=== PATIENT | female | born 1975 | race American Indian/Alaskan Native ===

== ENCOUNTER 2019-01-16 19:12 | Emergency (ER) | payer BC ==
--- NOTE | 2019-01-16 20:07 | Emergency Department Report ---
Chief Complaint: Extremity Injury, Upper Stated Complaint: LEFT HAND INJURY/FALL Time Seen by Provider: 01/16/19 20:05 - HPI History of Present Illness: This is a 43 y.o. female that presents with pain and swelling to left lateral hand s/p fall. - ROS Review of Systems: pain and swelling to left hand - Exam Vital Signs: Vital Signs 01/16/19 19:57 Temperature 98.1 F Pulse Rate 94 H Respiratory 16 Rate Blood Pressure 144/102 O2 Sat by Pulse 97 Oximetry MSE screening note: Focused history and physical exam performed. Due to findings the following was ordered: x-ray of left hand. Fast track for further evaluation. ED Disposition for MSE Condition: Stable Referrals: [facility] [Other] - 3-5 Days
--- NOTE | 2019-01-16 21:04 | XRay Report ---
PROCEDURE: XR HAND 3+V LT TECHNIQUE: 3 views of the left hand HISTORY: pain and swelling to lateral side COMPARISONS: No priors FINDINGS: No evidence of acute fracture or dislocation. Deformity of the fifth metacarpal distally, which may reflect sequela from prior healed fracture. Alignment is anatomic. No radiopaque foreign bodies. IMPRESSION: No acute fracture or dislocation. Deformity of the fifth metacarpal distally which may reflect sequela from prior healed fracture.. This document is electronically signed by John Escobar MD., January 16 2019 09:02:40 PM ET
[2019-01-16] MEDS ORDERED: IBUPROFEN PO ONE (22:10)
[2019-01-16] MEDS ORDERED: NORVASC PO ONE (22:11)
--- NOTE | 2019-01-16 22:12 | Emergency Department Report ---
Upper Extremity - HPI Chief Complaint: Extremity Injury, Upper Stated Complaint: LEFT HAND INJURY/FALL Time Seen by Provider: 01/16/19 20:05 Upper Extremity: Left Hand Occurred When: 1 Day Mechanism: Fall Severity: moderate Symptoms: Yes Pain with Movement, Yes Limited Range of Movement, Yes Weakness, Yes Swelling, No Deformity, No Numbness, No Bruising/Ecchymosis, No Laceration or Abrasion Other History: 43-year-old -Citizen Of [place] female presents to the emergency room for left hand swelling and pain. Patient reports that she had a fall yesterday and braced herself with her left hand. Patient reports no past medical history of any similar issues. ED Review of Systems ROS: Stated complaint: LEFT HAND INJURY/FALL Other details as noted in HPI Comment: All other systems reviewed and negative Musculoskeletal: joint swelling (fifth metacarpal), arthralgia (left hand pain fifth metacarpal) ED Past Medical Hx - Past Medical History Hx Hypertension: Yes (only when shes ) - Surgical History Additional Surgical History: CS - Social History Smoking Status: Never Smoker Substance Use Type: None - Medications Home Medications: Home Medications Medication Instructions Recorded Confirmed Last Taken Type Ibuprofen [Motrin] 600 mg PO Q8H PRN #90 tablet 07/12/15 Unknown Rx Sulfamethoxazole/Trimethoprim 1 each PO BID #10 tablet 07/12/15 Unknown Rx [Bactrim DS TAB] amLODIPine [Norvasc] 5 mg PO DAILY #45 tablet 01/16/19 Unknown Rx traMADol [Ultram 50 MG tab] 50 mg PO Q6HR PRN #12 tablet 01/16/19 Unknown Rx Upper Extremity Exam - Exam General: Vital signs noted. No distress. Alert and acting appropriately. Shoulder Exam: Yes Normal Range of Motion in Shoulder, No Shoulder Tenderness, No Clavicle Tenderness, No Shoulder Deformity, No AC Joint Tenderness Arm Exam: No Arm/Humerus Tenderness, No Arm Deformity Elbow: No Elbow Tenderness, No Normal Range of Motion in Elbow, No Elbow Deformity Forearm: No Forearm Tenderness, No Forearm Deformity, No Pain with Pronation, No Pain with Supination Hand: Yes Hand Tenderness (left lateral), Yes Normal ROM in Digit(s), No Hand Deformity, No Digit Tenderness, No Digit(s) Deformity, No Tendon Dysfunction CMS Exam: Yes Normal Distal Pulses, Yes Normal Capillary Refill, Yes Normal Distal Sensation, No Broken Skin ED Course Vital Signs 01/16/19 19:57 Temperature 98.1 F Pulse Rate 94 H Respiratory 16 Rate Blood Pressure 144/102 O2 Sat by Pulse 97 Oximetry ED Medical Decision Making - Radiology Data Radiology results: report reviewed Review of x-ray the left hand. Impression: No acute fracture or dislocation. Deformity of the fifth metacarpal distally which may reflect sequela from prior healed fracture. - Medical Decision Making Patient given ibuprofen for pain management on her ER visit. X-ray of left hand was performed with no acute fractures or dislocation Patient be placed in a wrist splint and prescription for tramadol. Patient also requests a refill on her Norvasc since she has been out of it for a few weeks. Patient reports she currently takes Norvasc 5 mg daily. Critical care attestation.: If time is entered above; I have spent that time in minutes in the direct care of this critically ill patient, excluding procedure time. ED Disposition Clinical Impression: Hand pain, left Injury of left hand Qualifiers: Encounter type: initial encounter Qualified Code(s): S69.92XA - Unspecified injury of left wrist, hand and finger(s), initial encounter HTN (hypertension) Qualifiers: Hypertension type: essential hypertension Qualified Code(s): I10 - Essential (primary) hypertension Disposition: DC-01 TO HOME OR SELFCARE Is pt being admited?: No Does the pt Need Aspirin: No Condition: Stable Instructions: Hypertension (ED) Additional Instructions: Please take pain medication as needed. Do not operate heavy machinery while taking pain medication. Please take amlodipine as prescribed for your blood pressure. Please follow up with the primary care provider for blood pressure management. Prescriptions: amLODIPine [Norvasc] 5 mg PO DAILY #45 tablet traMADol [Ultram 50 MG tab] 50 mg PO Q6HR PRN #12 tablet PRN Reason: Pain Referrals: [facility] [Other] - 3-5 Days
[2019-01-16 22:53] VITALS: BP 144/94
== END 2019-01-16 22:53 | disposition home or self-care (01) ==
LOC: ED 19:12
DX: S69.92XA Unspecified injury of left wrist, hand and finger(s), initial encounter (principal); I10 Essential (primary) hypertension; Z88.6 Allergy status to analgesic agent; Z79.899 Other long term (current) drug therapy; W19.XXXA Unspecified fall, initial encounter; Y93.89 Activity, other specified; Y92.89 Other specified places as the place of occurrence of the external cause; Y99.8 Other external cause status

== ENCOUNTER 2020-03-06 07:16 | Emergency (ER) | payer SELFPAY ==
--- NOTE | 2020-03-06 08:00 | Emergency Department Report ---
ED General Adult HPI - General Chief complaint: Upper Respiratory Infection Stated complaint: WEAKNESS,BODY ACHE/ CAMERON/ LOSS OF APPETITE PUI?: Yes Time Seen by Provider: 03/06/20 07:36 Source: patient, RN notes reviewed Mode of arrival: Ambulatory Limitations: No Limitations - History of Present Illness Initial comments: The patient is a 45-year-old female. I have not medically evaluated her in the past. She does not have a local primary care doctor. She reports that she is not . Please note that for the entire history and physical examination, I had on complete personal protective equipment. 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 The patient presents to the ER on day 8 of cough, body aches, malaise, fatigue, lack of energy. She denies physical pain. She does endorse a decrease in taste and smell. There is no complaint of headache, neck pain, chest pain, abdominal pain, she has positive shortness of breath, there were no urinary symptoms, positive body aches, no focal extremity weakness and or numbness, and no cutaneous lesions. Does not have confirmed coronavirus exposure that she is aware of. Symptoms constant, getting worse, worsened with physical exertion and decreased with rest She was recently referred to a local primary care doctor, but as of now, has not followed up. -: Gradual, days(s) Severity scale (0 -10): 10 Consistency: other Improves with: other Worsens with: other Associated Symptoms: other - Related Data Previous Rx's Medication Instructions Recorded Last Taken Type Ibuprofen [Motrin] 600 mg PO Q8H PRN #90 tablet 07/12/15 Unknown Rx amLODIPine 5 mg PO DAILY #45 tablet 01/16/19 Unknown Rx Acetaminophen [Non-Aspirin Extra 500 mg PO Q6HR PRN #30 tablet 03/06/20 Unknown Rx Strength] Albuterol Sulfate [Proair 90 mcg IH Q4HR PRN #2 aer.pow.[email or web address] 03/06/20 Unknown Rx Respiclick] Amoxicillin [Trimox CAP] 1,000 mg PO Q8H #28 capsule 03/06/20 Unknown Rx Azithromycin [Zithromax TAB] 250 mg PO QDAY #4 tablet 03/06/20 Unknown Rx Ibuprofen [Motrin] 600 mg PO Q8H PRN #30 tablet 03/06/20 Unknown Rx Allergies Allergy/AdvReac Type Severity Reaction Status Date / Time acetaminophen [From Percocet] Allergy Itching Verified 07/12/15 03:01 oxycodone HCl [From Percocet] Allergy Itching Verified 07/12/15 03:01 ED Review of Systems ROS: Stated complaint: WEAKNESS,BODY ACHE/ CAMERON/ LOSS OF APPETITE Other details as noted in HPI Constitutional: fever, malaise, weakness Eyes: denies: eye discharge ENT: congestion Respiratory: cough, wheezing Cardiovascular: denies: chest pain Gastrointestinal: denies: abdominal pain Genitourinary: denies: dysuria Musculoskeletal: arthralgia, myalgia Skin: denies: lesions Neurological: weakness Psychiatric: as per HPI Hematological/Lymphatic: denies: easy bleeding ED Past Medical Hx - Past Medical History Previous Medical History?: Yes Hx Hypertension: Yes (only when shes ) - Surgical History Additional Surgical History: - Social History Smoking Status: Never Smoker Substance Use Type: None - Medications Home Medications: Home Medications Medication Instructions Recorded Confirmed Last Taken Type Ibuprofen [Motrin] 600 mg PO Q8H PRN #90 tablet 07/12/15 Unknown Rx amLODIPine 5 mg PO DAILY #45 tablet 01/16/19 Unknown Rx Acetaminophen [Non-Aspirin Extra 500 mg PO Q6HR PRN #30 tablet 03/06/20 Unknown Rx Strength] Albuterol Sulfate [Proair 90 mcg IH Q4HR PRN #2 aer.pow.ba 03/06/20 Unknown Rx Respiclick] Amoxicillin [Trimox CAP] 1,000 mg PO Q8H #28 capsule 03/06/20 Unknown Rx Azithromycin [Zithromax TAB] 250 mg PO QDAY #4 tablet 03/06/20 Unknown Rx Ibuprofen [Motrin] 600 mg PO Q8H PRN #30 tablet 03/06/20 Unknown Rx ED Physical Exam - General Limitations: No Limitations General appearance: alert, in no apparent distress - Head Head exam: Present: atraumatic, normocephalic - Eye Eye exam: Present: normal appearance, EOMI. Absent: nystagmus - ENT ENT exam: Present: normal exam, normal external ear exam - Neck Neck exam: Present: normal inspection, full ROM. Absent: tenderness, meningismus - Respiratory Respiratory exam: Present: normal lung sounds bilaterally. Absent: respiratory distress, wheezes, rales, rhonchi, stridor - Cardiovascular Cardiovascular Exam: Present: normal rhythm, tachycardia, normal heart sounds. Absent: systolic murmur, diastolic murmur, rubs, gallop - GI/Abdominal GI/Abdominal exam: Present: soft. Absent: distended, tenderness, guarding, rebound, rigid, pulsatile mass - Extremities Exam Extremities exam: Present: normal inspection, full ROM, other (2+ pulses noted in the bilateral upper and lower extremities. There is no palpable cord. negative Homans sign. Muscular compartments are soft. The pelvis is stable.). Absent: pedal edema, calf tenderness - Back Exam Back exam: Present: normal inspection, full ROM. Absent: tenderness, CVA tenderness (R), CVA tenderness (L), paraspinal tenderness, vertebral tenderness - Neurological Exam Neurological exam: Present: alert, other (No facial droop. Tongue midline. Extraocular movements intact bilaterally. Facial sensation intact to light touch in V1, V2, V3 distribution bilaterally. 5 and a 5 strength in 4 extremities. Sensation intact to light touch in 4 extremities.). Absent: motor sensory deficit - Psychiatric Psychiatric exam: Present: anxious - Skin Skin exam: Present: warm, dry, intact, normal color. 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 Suspect viral versus bacterial pneumonia. We will treat her symptoms, give fluids, obtain x-ray of the chest, check screening laboratory studies, and reassess after her initial resuscitation. Given that she is on her eighth day of symptoms, I anticipate that we should be able to correct her vital sign abnormalities, improved her symptoms, and have her discharged with oral antibiotics, and instructions to follow-up with an outpatient primary care doctor. Explained this to the patient, and she verbalized understanding, and she is amenable to this plan of care. Reevaluation #2: 03/06/20 08:41 Patient reports that she is intolerant of Percocet, but that she can tolerate Tylenol/acetaminophen. She specifically states that she is not allergic to Tylenol or acetaminophen Reevaluation #3: 03/06/20 11:10 Patient is reassessed. Tachycardia resolved. She has defervesced. Laboratory studies are reviewed and appreciated. X-ray of the chest is reviewed and appreciated. Discussed significance of findings with patient. She verbalizes understanding. Suspect viral pneumonia, but we will cover empirically with amoxicillin and azithromycin. Discussed expected natural history of both viral pneumonia, and bacterial pneumonia, patient endorses reliability to follow-up as an outpatient, and she understands return precautions. Patient has been observed in this ER for hours, she is clinically improved, and she is suitable for trial of outpatient management, self quarantine and self isolation. ED Medical Decision Making - Lab Data Result diagrams: 03/06/20 08:58 03/06/20 08:58 Vital Signs 03/06/20 07:28 Temperature 100.9 F H Pulse Rate 122 H Respiratory 20 Rate Blood Pressure 147/91 [Right] O2 Sat by Pulse 98 Oximetry - Radiology Data Radiology results: report reviewed, image reviewed Print Report Referring Physician: ISREAL BUSTAMANTE Patient Name: TAHMINA MCCLAIN Date of : 1975 Sex: Female Report Date: 2020-03-06 Report Status: Finalized Findings [facility] [address] [place] [address] XRa y Report Signed Patient: TAHMINA QUEEN MR#: [id number] : 1975 Acct:[id number] Age/Sex: 45 / F ADM Date: 03/06/20 Loc: ED Attending Dr: Ordering Physician: ISREAL BUSTAMANTE MD Date of Service: 03/06/20 Procedure(s): XR chest 1V ap Accession Number(s): [id number] cc: ISREAL BUSTAMANTE MD Fluoro Time In Minutes: CHEST 1 VIEW 03/06/2020 7:28 AM INDICATION / CLINICAL INFORMATION: Fever, cough. COVID-19 PUI. COMPARISON: None available. FINDINGS: SUPPORT DEVICES: None. HEART / MEDIASTINUM: No significant abnormality. LUNGS / PLEURA: There is focal hazy parenchymal opacity in the left lower lobe. There is no pleural effusion or pneumothorax. Right lung appears clear. ADDITIONAL FINDI NGS: No significant additional findings. IMPRESSION: 1. Hazy parenchymal opacity in the basilar left lower lung. Signer Name: Burt Hoyos MD Signed: 03/06/2020 8:31 AM Workstation Name: [id number] Transcribed By: MARIANELA Dictated By: Burt Hoyos MD Electronically Authenticated By: Burt Hoyos MD Signed Date/Time: 03/06/20830 DD/ 9 Critical Care Time: Yes Critical care time in (mins) excluding proc time.: 35 Critical care attestation.: If time is entered above; I have spent that time in minutes in the direct care of this critically ill patient, excluding procedure time. ED Disposition Clinical Impression: Suspected 2019 novel coronavirus infection Disposition: DC-01 TO HOME OR SELFCARE Is pt being admited?: No Does the pt Need Aspirin: No Condition: Stable Instructions: COVID-19, Bacterial Pneumonia (ED) Additional Instructions: Recommend that patient self isolate, self quarantine, and stay at home, and only leave 4 essential items, such as food, water, etc. history suspicious for viral pneumonia, sepsis possible coronavirus. Take the antibiotics as directed, pain medications as needed and directed, albuterol therapy as needed for assistance with breathing, and please follow-up with a physician for a repeat checkup and evaluation within the next 3 to 5 days. Patient should not return to work for at least 2 weeks, which he may return earlier if cleared to do so by her primary care physician. Please return to the emergency room right away with projectile vomiting, change in mental status, confusion, inability to tolerate liquid feeds, worsened breathing, worsening shortness of breath, or new, worsened or different symptoms not present on the initial emergency room evaluation. Patient can expect persistent weakness, muscle aches, fevers, shortness of breath, this is normal and expected. Please do not consume alcohol while taking the prescription medications. Referrals: JAKE ROBISON MD [Staff Physician] - 3-[address] [facility] [Provider Group] - 3-5 Days Forms: Work/School Release Form(ED)
--- NOTE | 2020-03-06 08:35 | XRay Report ---
CHEST 1 VIEW 03/06/2020 7:28 AM INDICATION / CLINICAL INFORMATION: Fever, cough. COVID-19 PUI. COMPARISON: None available. FINDINGS: SUPPORT DEVICES: None. HEART / MEDIASTINUM: No significant abnormality. LUNGS / PLEURA: There is focal hazy parenchymal opacity in the left lower lobe. There is no pleural e ffusion or pneumothorax. Right lung appears clear. ADDITIONAL FINDINGS: No significant additional findings. IMPRESSION: 1. Hazy parenchymal opacity in the basilar left lower lung. Signer Name: Burt Hoyos MD Signed: 03/06/2020 8:31 AM Workstation Name: [id number]
[2020-03-06] MEDS: IBUPROFEN 400 MG TAB PO ONE (09:04)
[2020-03-06] MEDS: ACETAMINOPHEN 500 MG TAB PO ONE (09:04)
[2020-03-06 09:10] LABS: Hematocrit 43.3 % (30.3-42.9); Hemoglobin 14.6 gm/dl (10.1-14.3)
[2020-03-06] MEDS: SODIUM CHLORIDE 0.9% 1000 ML 1,000 ML IV ONE ×2 (09:17→09:30)
[2020-03-06 09:27] LABS: Alanine Aminotransferase 15 units/L (7-56); BUN/Creatinine Ratio 14; Blood Urea Nitrogen 10 mg/dL (7-17); Calcium 8.8 mg/dL (8.4-10.2); Hemolysis Index 17
[2020-03-06 09:39] LABS: INR 1.11 (0.87-1.13)
[2020-03-06 11:02] VITALS: BP 141/88
[2020-03-06] MEDS: AZITHROMYCIN 250 MG TAB PO ONE (11:28)
[2020-03-06] MEDS: AMOXICILLIN 500 MG CAP PO ONE (11:28)
== END 2020-03-06 12:00 | disposition home or self-care (01) ==
LOC: ED 07:16
DX: R05 Cough (principal); R53.1 Weakness; I10 Essential (primary) hypertension; R53.83 Other fatigue; Z20.828 Contact with and (suspected) exposure to other viral communicable diseases; Z79.899 Other long term (current) drug therapy
CPT/HCPCS: 36415; 71045; 80053; 82550; 83735; 84702; 85014; 85018; 85049; 85610; 99284; J7030